=== PATIENT | female | born 1950 | race Caucasian/White ===

== ENCOUNTER 2016-09-16 09:39 | Day surgery (SDC) | payer MEDICARE ==
--- NOTE | 2016-09-16 12:00 | Operative Note ---
DATE OF SURGERY: 09/16/16 OPERATION: Esophagogastroduodenoscopy with multiple biopsies. REFERRING PHYSICIAN: Tip Benavides M.D. INDICATION: Recurring pyrosis. Patient also with a history of dysphagia, pointing to the upper chest. Upper endoscopy is performed at this time for further evaluation. ANESTHESIA: Intravenous sedation was administered by the Department of Anesthesiology and included Diprivan titrated to effect. PROCEDURE: Following informed consent from this alert individual, including a discussion of the risks and benefits of the procedure and an opportunity for the patient to ask questions, the patient was in the left lateral decubitus position. The Olympus [id number] video endoscope was inserted into the esophagus without resistance. The cervical esophagus had a normal appearance with normal folds and distensibility. There was a 4.0 mm polyp noted at approximately 23 cm from the area of the central incisors. This polyp was removed with biopsy forceps. The esophagus itself otherwise was endoscopically unremarkable. The gastroesophageal junction was evaluated and was found to have some edema and erythema just below the squamocolumnar junction in the upper stomach. Biopsies from this site were taken as well at the level of the gastroesophageal junction. The stomach was evaluated and found to be mildly erythematous without ulcerations or erosions. The pylorus was patent. The duodenal bulb, sweep, and descending duodenum were examined in a serial fashion and were found to be normal. The endoscope was then drawn back into the body of the stomach. Retroflexion was accomplished following air insufflation and failed to demonstrate any additional changes. Again, a 2.0 to 3.0 cm hiatal hernia was noted. Biopsies were taken from the stomach to evaluate for Helicobacter pylori and check histology. A final set of biopsies were taken from throughout the esophagus to rule out eosinophilic esophagitis. Although endoscopically, this was not readily apparent. The instrument was removed. The patient tolerated the procedure well and was returned to the recovery area in stable condition. IMPRESSION: 1. A 4.0 MM POLYP REMOVED FROM 23 CM FROM THE INCISORS. 2. BIOPSIES WERE TAKEN FROM THROUGHOUT THE ESOPHAGUS TO EVALUATE FOR POSSIBLE EOSINOPHILIC ESOPHAGITIS; ALTHOUGH ENDOSCOPICALLY THIS DID NOT SEEM APPARENT. 3. BIOPSIES WERE TAKEN FROM THE GASTROESOPHAGEAL JUNCTION, PARTICULARLY ON THE GASTRIC SIDE WHICH APPEARED SOMEWHAT EDEMATOUS AND ERYTHEMATOUS. 4. GASTRIC BIOPSIES WERE TAKEN FOR EVALUATION OF GASTRITIS WHICH WAS MILD. RECOMMENDATIONS: Further recommendations will be forthcoming pending the results of the biopsies obtained today. The patient might also benefit from taking omeprazole 20 mg on a regular basis each morning. Follow up will be with Dr. Benavides and Elaine Vega P.A.-C. Tamara JACOBO cc: Daina Schneider P.A.-C. Job Number: [id number] MTDD
[2016-09-16] MEDS ORDERED: MIDAZOLAM HCL 2MG/2ML VIAL IV ONE (14:38)
[2016-09-16] MEDS ORDERED: LIDOCAINE 2% MDV (20MG/ML) 20ML VIAL IV ONE (14:38)
[2016-09-16] MEDS ORDERED: FENTANYL PF 100MCG/2ML VIAL IV ONE (14:38)
[2016-09-16] MEDS ORDERED: PROPOFOL 10 MG/ML VIAL IV ONE (14:38)
== END 2016-09-16 11:12 | disposition home or self-care (01) ==
LOC: HOP 09:39
PROVIDERS: ATTEND Internal Medicine Gastroenterology
DX: K21.9 Gastro-esophageal reflux disease without esophagitis (principal); D13.0 Benign neoplasm of esophagus; K21.0 Gastro-esophageal reflux disease with esophagitis; K44.9 Diaphragmatic hernia without obstruction or gangrene; K29.50 Unspecified chronic gastritis without bleeding; F31.9 Bipolar disorder, unspecified
CPT/HCPCS: 43239; 00740; J3010

== ENCOUNTER 2016-12-22 20:18 | Emergency (ER) | payer MEDICARE ==
--- NOTE | 2016-12-22 21:16 | Emergency Department Record ---
History of Present Illness - General Chief complaint: Extremity Problem Stated complaint: LEFT THUMB PAIN/CLAUDINE/DIZZY Time Seen by Provider: 12/22/16 21:10 Source: Patient - History of Present Illness Initial comments: Patient has had 2 weeks of thumb pain since she slammed it in a car door. She says, "It's not broken, trust me, I need a CBC." Patient has bipolar. MD Complaint: Extremity pain - Related Data Allergies Allergy/AdvReac Type Severity Reaction Status Date / Time Penicillins Allergy Intermediate HIVES Verified 08/26/16 14:27 Review of Systems Reviewed: No additional complaints except as noted below Constitutional: Reports: As per HPI. Denies: Chills, Fever, Malaise, Night sweats, Weakness, Weight change Eyes: Reports: As per HPI. Denies: Eye discharge, Eye pain, Photophobia, Vision change ENT: Reports: As per HPI. Denies: Congestion, Dental pain, Ear pain, Epistaxis , Hearing loss, Throat pain Respiratory: Reports: As per HPI. Denies: Cough, Dyspnea, Hemoptysis, Stridor, Wheezes Cardiovascular: Reports: As per HPI. Denies: Arrhythmia, Chest pain, Dyspnea on exertion, Edema, Murmurs, Orthopnea, Palpitations, Paroxysmal nocturnal dyspnea, Rheumatic Fever, Syncope Endocrine: Reports: As per HPI. Denies: Fatigue, Heat or cold intolerance, Polydipsia, Polyuria Gastrointestinal: Reports: As per HPI. Denies: Abdominal pain, Constipation, Diarrhea, Hematemesis, Hematochezia, Melena, Nausea, Vomiting Genitourinary: Reports: As per HPI. Denies: Abnormal menses, Discharge, Dyspareunia, Dysuria, Frequency, Hematuria, Incontinence, Retention, Urgency Musculoskeletal: Reports: As per HPI. Denies: Arthralgia, Back pain, Gout, Joint swelling, Myalgia, Neck pain Skin: Reports: As per HPI. Denies: Bruising, Change in color, Change in hair/ nails, Lesions, Pruritus, Rash Neurological: Reports: As per HPI. Denies: Abnormal gait, Confusion, Headache, Numbness, Paresthesias, Seizure, Tingling, Tremors, Vertigo, Weakness Psychiatric: Reports: As per HPI. Denies: Anxiety, Auditory hallucinations, Depression, Homicidal thoughts, Suicidal thoughts, Visual hallucinations Hematological/Lymphatic: Reports: As per HPI. Denies: Anemia, Blood Clots, Easy bleeding, Easy bruising, Swollen glands Past Medical History - SOCIAL HISTORY Smoking Status: Current every day smoker - RESPIRATORY Hx Respiratory Disorders: Yes Hx Bronchitis: Yes (years ago) Hx COPD: Yes - CARDIOVASCULAR Hx Cardio Disorders: Yes Hx Edema: Yes (left ankle sometimes) Hx Hypotension: Yes - NEURO Hx Neuro Disorders: Yes Hx Dizziness: Yes (has lower bp-when gets up too quickly) - GI Hx GI Disorders: Yes Hx Abdominal Pain: Yes (only with IBS) Hx Diverticulitis: Yes Hx Reflux: Yes Hx Hiatal Hernia: Yes Hx Irritable Bowel: Yes Hx Nausea/Vomiting: Yes (only with IBS-none recently) Hx Wt Loss/Wt Gain: Yes (10 lbs/1 month) Comment:: cut sugars from diet -wt loss - Hx Genitourinary Disorders: No - ENDOCRINE Hx Endocrine Disorders: No - MUSCULOSKELETAL Hx Musculoskeletal Disorders: Yes Hx Arthritis: Yes Hx Back Injury: Yes Hx Osteoporosis: Yes - PSYCH Hx Psych Problems: Yes Hx Anxiety: Yes Comment:: /manic depressant - HEMATOLOGY/ONCOLOGY Hx Hematology/Oncology Disorders: Yes Hx Blood Disorders: Yes ("always have high white count",2009 last time) Hx Cancer: Yes (right breast) Hx Chemotherapy: Yes Hx Radiation Therapy: Yes Family Medical History Hx Alcohol Use: Brother/Sister *Alcohol Comment: 2 sisters Hx Anxiety: Father Hx Cancer: Grandparents *Cancer Comment: great grandma-stomach CA Hx Dementia: Mother Hx Depression: Children *Depression Comment: 2 sons Hx Diabetes: Brother/Sister *Diabetes Comment: sister Hx Heart Disease: Father *Kidney Comment: uncle Hx Liver Disease: Brother/Sister *Liver Comment: sister-hep C Hx Resp Disorders: Children *Resp Comment: asthma Hx Stroke: Brother/Sister *Stroke Comment: sister has ministrokes Physical Exam - General General Appearance: Alert, Oriented x3, Cooperative, No acute distress, Anxious (patient insists she does not need an xray on her thumb, but states she slammed it in a car door 2 weeks ago.) - Head Head exam: Normal inspection - Eye Eye exam: Normal appearance, PERRL Pupils: Normal accommodation - ENT ENT exam: Normal exam, Mucous membranes moist, Normal external ear exam, Normal orophraynx Ear exam: Normal external inspection. negative: External canal tenderness Nasal Exam: Normal inspection. negative: Discharge, Sinus tenderness Mouth exam: Normal external inspection, Tongue normal Teeth exam: Normal inspection. negative: Dental caries Throat exam: Normal inspection. negative: Tonsillar erythema, Tonsillar exudate - Neck Neck exam: Normal inspection, Full ROM. negative: Tenderness - Respiratory Respiratory exam: negative: Respiratory distress - Cardiovascular Cardiovascular Exam: Regular rate, Normal rhythm - GI/Abdominal GI/Abdominal exam: Soft. negative: Tenderness - Rectal Rectal exam: Deferred - exam: Deferred - Extremities Extremities exam: Normal inspection, Full ROM, Normal capillary refill, Tenderness (thumb with chronic skin changes, no cellulitis, nail is loose at its base, no discharge, erythema or bleeding) - Back Back exam: Reports: Normal inspection, Full ROM. Denies: Muscle spasm, Rash noted, Tenderness - Neurological Neurological exam: Alert, Normal gait, Oriented X3, Reflexes normal - Psychiatric Psychiatric exam: Normal affect, Normal mood - Skin Skin exam: Dry, Intact, Normal color, Warm Course - Reevaluation(s) Reevaluation #1: Patient is adamant to not get her thumb xrayed and is refusing. She also added that she has urinary symptoms and wishes a UA. 12/22/16 21:16 Reevaluation #2: Repeat exam shows left thumb slightly swollen compared to other thumb. Will bandage. Patient is fixatec on her thumb, "I see a blood spot here, but there is no blood." Thumb is dry, slightly sore on palpation. 12/22/16 21:56 Medical Decision Making - Management Options MDM Management: No Additional Work-up Planned - Data Complexity MDM Data: Labs Ordered and/or Reviewed (UA Neg.) Disposition Disposition: Discharge Clinical Impression: Contusion of thumb, left Qualifiers: Encounter type: initial encounter Damage to nail status: without damage Qualified Code(s): S60.012A - Contusion of left thumb without damage to nail, initial encounter Disposition: Home, Self-Care Condition: (1) Good Instructions: Contusion in Adults, Tunnel Elastic Operator Lockstitch (GEN), Finger Sprain (ED) Additional Instructions: Keep covered for protection. Follow up with PCP as needed.
[2016-12-22 21:30] LABS: URINE APPEARANCE CLEAR; URINE BILIRUBIN NEGATIVE (NEGATIVE); URINE BLOOD NEGATIVE (NEGATIVE); URINE COLOR YELLOW; URINE GLUCOSE (UA) NEGATIVE (NEGATIVE); URINE KETONE NEGATIVE (NEGATIVE); URINE LEUKOCYTE ESTERASE NEGATIVE (NEGATIVE); URINE NITRITE NEGATIVE (NEGATIVE); URINE PROTEIN NEGATIVE (NEGATIVE); URINE UROBILINOGEN 0.2 E.U./dL (0.20 - 1.00)
== END 2016-12-22 22:08 | disposition home or self-care (01) ==
LOC: ER 20:18
DX: S60.012A Contusion of left thumb without damage to nail, initial encounter (principal); R42 Dizziness and giddiness; R11.0 Nausea; R35.0 Frequency of micturition; W22.8XXA Striking against or struck by other objects, initial encounter; F31.9 Bipolar disorder, unspecified
CPT/HCPCS: 81003; 99283

== ENCOUNTER 2017-11-26 15:18 | Emergency (ER) | payer MEDICARE ==
--- NOTE | 2017-11-26 16:14 | Emergency Department Record ---
History of Present Illness - General Chief Complaint: Cough Stated Complaint: CHEST CONGESTION Time Seen by Provider: 11/26/17 15:56 Source: Patient, RN notes reviewed Mode of Arrival: Wheelchair - History of Present Illness Initial Comments: cough and congestion and for 2 weeks and she is trying to stop smoking. productive sputum and brown and it was green.[facility] and given z jah and finished that two days ago and she felt some better but getting worse now. MD Complaint: Cough Onset/Timin -: Week(s) Consistency: Intermittent - Related Data Home Medications Medication Instructions Recorded Confirmed Last Taken Clonazepam 1 mg PO ASDIR 11/26/17 11/26/17 Unknown Retreat Carbonate [Retreat 300 mg PO ASDIR 11/26/17 11/26/17 11/26/17 Carbonate ER] Nortriptyline HCl 100 mg PO ASDIR 11/26/17 11/26/17 11/26/17 Omeprazole [Prilosec] 20 mg PO DAILY 11/26/17 11/26/17 11/26/17 Previous Rx's Medication Instructions Recorded Cephalexin [Keflex] 500 mg PO QID #40 cap 11/26/17 Prednisone [Prednisone 10Mg] 10 mg PO ASDIR #30 tab 11/26/17 Allergies Allergy/AdvReac Type Severity Reaction Status Date / Time Penicillins Allergy Intermediate HIVES Verified 11/26/17 15:34 Travel Screening - Travel/Exposure Within Last 30 Days Have you traveled within the last 30 days?: No - Travel/Exposure Within Last Year Have you traveled outside the [place] in the last year?: No - Additonal Travel Details Have you been exposed to anyone with a communicable illness?: No - Travel Symptoms Symptom Screening: None Review of Systems Reviewed: No additional complaints except as noted below Constitutional: Reports: As per HPI. Denies: Chills, Fever, Malaise, Night sweats, Weakness, Weight change Eyes: Reports: As per HPI. Denies: Eye discharge, Eye pain, Photophobia, Vision change ENT: Reports: As per HPI. Denies: Congestion, Dental pain, Ear pain, Epistaxis , Hearing loss, Throat pain Respiratory: Reports: As per HPI. Denies: Cough, Dyspnea, Hemoptysis, Stridor, Wheezes Cardiovascular: Reports: As per HPI. Denies: Arrhythmia, Chest pain, Dyspnea on exertion, Edema, Murmurs, Orthopnea, Palpitations, Paroxysmal nocturnal dyspnea, Rheumatic Fever, Syncope Endocrine: Reports: As per HPI. Denies: Fatigue, Heat or cold intolerance, Polydipsia, Polyuria Gastrointestinal: Reports: As per HPI. Denies: Abdominal pain, Constipation, Diarrhea, Hematemesis, Hematochezia, Melena, Nausea, Vomiting Genitourinary: Reports: As per HPI. Denies: Abnormal menses, Discharge, Dyspareunia, Dysuria, Frequency, Hematuria, Incontinence, Retention, Urgency Musculoskeletal: Reports: As per HPI. Denies: Arthralgia, Back pain, Gout, Joint swelling, Myalgia, Neck pain Skin: Reports: As per HPI. Denies: Bruising, Change in color, Change in hair/ nails, Lesions, Pruritus, Rash Neurological: Reports: As per HPI. Denies: Abnormal gait, Confusion, Headache, Numbness, Paresthesias, Seizure, Tingling, Tremors, Vertigo, Weakness Psychiatric: Reports: As per HPI. Denies: Anxiety, Auditory hallucinations, Depression, Homicidal thoughts, Suicidal thoughts, Visual hallucinations Hematological/Lymphatic: Reports: As per HPI. Denies: Anemia, Blood Clots, Easy bleeding, Easy bruising, Swollen glands Past Medical History - SOCIAL HISTORY Smoking Status: Current every day smoker Alcohol Use: Rare Drug Use: None - RESPIRATORY Hx Respiratory Disorders: Yes Hx Bronchitis: Yes (years ago) Hx COPD: Yes - CARDIOVASCULAR Hx Cardio Disorders: Yes Hx Edema: Yes (left ankle sometimes) Hx Hypotension: Yes - NEURO Hx Neuro Disorders: Yes Hx Dizziness: Yes (has lower bp-when gets up too quickly) - GI Hx GI Disorders: Yes Hx Abdominal Pain: Yes (only with IBS) Hx Diverticulitis: Yes Hx Reflux: Yes Hx Hiatal Hernia: Yes Hx Irritable Bowel: Yes Hx Nausea/Vomiting: Yes (only with IBS-none recently) Hx Wt Loss/Wt Gain: Yes (10 lbs/1 month) Comment:: cut sugars from diet -wt loss - Hx Genitourinary Disorders: No - ENDOCRINE Hx Endocrine Disorders: No - MUSCULOSKELETAL Hx Musculoskeletal Disorders: Yes Hx Arthritis: Yes Hx Back Injury: Yes Hx Osteoporosis: Yes - PSYCH Hx Psych Problems: Yes Hx Anxiety: Yes Comment:: /manic depressant - HEMATOLOGY/ONCOLOGY Hx Hematology/Oncology Disorders: Yes Hx Blood Disorders: Yes ("always have high white count",2009 last time) Hx Cancer: Yes (right breast) Hx Chemotherapy: Yes Hx Radiation Therapy: Yes Family Medical History Any Significant Family History?: Yes Hx Alcohol Use: Brother/Sister *Alcohol Comment: 2 sisters Hx Anxiety: Father Hx Cancer: Grandparents *Cancer Comment: great grandma-stomach CA Hx Dementia: Mother Hx Depression: Children *Depression Comment: 2 sons Hx Diabetes: Brother/Sister *Diabetes Comment: sister Hx Heart Disease: Father *Kidney Comment: uncle Hx Liver Disease: Brother/Sister *Liver Comment: sister-hep C Hx Resp Disorders: Children *Resp Comment: asthma Hx Stroke: Brother/Sister *Stroke Comment: sister has ministrokes Physical Exam - General General Appearance: Alert, Oriented x3, Cooperative, No acute distress - Head Head exam: Normal inspection - Eye Eye exam: Normal appearance, PERRL Pupils: Normal accommodation - ENT ENT exam: Normal exam, Mucous membranes moist, Normal external ear exam, Normal orophraynx, TM's normal bilaterally Ear exam: Normal external inspection. negative: External canal tenderness Nasal Exam: Normal inspection. negative: Discharge, Sinus tenderness Mouth exam: Normal external inspection, Tongue normal Teeth exam: Normal inspection. negative: Dental caries Throat exam: Normal inspection. negative: Tonsillar erythema, Tonsillar exudate - Neck Neck exam: Normal inspection, Full ROM. negative: Tenderness - Respiratory Respiratory exam: Wheezes. negative: Respiratory distress - Cardiovascular Cardiovascular Exam: Regular rate, Normal rhythm, Normal heart sounds - GI/Abdominal GI/Abdominal exam: Soft, Normal bowel sounds. negative: Tenderness - Rectal Rectal exam: Deferred - exam: Deferred - Extremities Extremities exam: Normal inspection, Full ROM, Normal capillary refill. negative: Tenderness - Back Back exam: Reports: Normal inspection, Full ROM. Denies: Muscle spasm, Rash noted, Tenderness - Neurological Neurological exam: Alert, Normal gait, Oriented X3, Reflexes normal - Psychiatric Psychiatric exam: Normal affect, Normal mood - Skin Skin exam: Dry, Intact, Normal color, Warm Course Vital Signs 11/26/17 15:44 Temperature 98.3 F Pulse Rate 97 H Respiratory 20 Rate Blood Pressure 107/77 Pulse Ox 92 L Medical Decision Making - Data Complexity MDM Data: Labs Ordered and/or Reviewed, X-Ray Ordered and/or Reviewed (copd and tiny effussions and thickening) - Lab Data Result diagrams: 11/26/17 16:47 11/26/17 16:47 Disposition Clinical Impression: COPD (chronic obstructive pulmonary disease) with acute bronchitis Disposition: Home, Self-Care Condition: (1) Good Instructions: COPD (Chronic Obstructive Pulmonary Disease) (ED) Additional Instructions: follow up with family Dr in one week use nebulizer shai 4 hous albuterol Prescriptions: Cephalexin [Keflex] 500 mg PO QID #40 cap Prednisone [Prednisone 10Mg] 10 mg PO ASDIR #30 tab Forms: Patient Portal Access Time of Disposition: 17:59 Quality - Quality Measures Quality Measures: N/A - Blood Pressure Screening Does Patient Have Any of the Following: No Blood Pressure Classification: Normal BP Reading Systolic Measurement: 107 Diastolic Measurement: 77 Screening for High Blood Pressure: < Normal BP, F/U Not Required > [G8783]
[2017-11-26] MEDS: IPRATROPIUM/ALBUTEROL (0.5MG/3MG) NEB INH ONE (17:04)
[2017-11-26 17:14] LABS: HEMATOCRIT 53.4 % (35.0-47.0); HEMOGLOBIN 16.9 gm/dl (11.6-16.0); MEAN CELL VOLUME 88.9 fl (81-97); MEAN CORPUSCULAR HEMOGLOBIN 28.1 pg (27-33); MEAN CORPUSCULAR HGB CONC 31.6 g/dl (32-36); MEAN PLATELET VOLUME 11.1 fl (7.4-10.4); PLATELET COUNT 287 K/uL (130-400); RED BLOOD COUNT 6.01 M/uL (3.80-5.40); RED CELL DISTRIBUTION WIDTH 14.5 % (11.5-14.5); WHITE BLOOD COUNT W/O DIFF 9.2 K/uL (4.2-12.2)
[2017-11-26] MEDS: METHYLPREDNISOLONE PF 125MG/VIAL IVP ONE (17:24)
[2017-11-26] MEDS: CEFTRIAXONE SODIUM 1 GM in 0.9 % SODIUM CHLORIDE 100ML 100 ML IVPB ONE (17:24)
[2017-11-26] MEDS: 0.9 % SODIUM CHLORIDE 1000ML 1,000 ML IV PRN (17:24)
[2017-11-26 17:34] LABS: PLATELET ESTIMATE NORMAL (NORMAL)
[2017-11-26 17:37] LABS: BLOOD UREA NITROGEN 16 mg/dL (8-23); CREATININE 0.9 mg/dL (0.5-0.9); EST GLOMERULAR FILTRATION RATE > 60 mL/min
[2017-11-26 17:39] LABS: GLUCOSE,RANDOM 83 mg/dL (74-109)
--- NOTE | 2017-11-27 09:43 | RADIOLOGY REPORT ---
EXAM: CHEST, TWO VIEWS HISTORY: DIFFICULTY BREATHING. TECHNIQUE: Frontal and lateral views of the chest were obtained. Comparison: Prior chest from 06/27/13. FINDINGS: The heart size is normal. Osteopenia with ectasia of the thoracic aorta. COPD. Surgical clips project over the right hemithorax. Scarring in the right lung base. Minimal blunting of the costophrenic angles likely reflecting tiny effusions and/or pleural thickening. The lungs are otherwise clear. IMPRESSION: COPD. TINY EFFUSIONS AND/OR PLEURAL THICKENING. SCARRING IN THE LUNG BASES. JOB NUMBER: [id number] [facility]
== END 2017-11-26 18:18 | disposition home or self-care (01) ==
LOC: ER 15:18
DX: J44.9 Chronic obstructive pulmonary disease, unspecified (principal); J20.9 Acute bronchitis, unspecified; F17.210 Nicotine dependence, cigarettes, uncomplicated
CPT/HCPCS: 71046; 80048; 85027; 94640; 96365; 96375; 99284; J2930

== ENCOUNTER 2018-10-29 07:14 | Day surgery (SDC) | payer MEDICARE ==
[2018-10-29] MEDS ORDERED: PROPOFOL 10 MG/ML VIAL IV ONE (07:15)
--- NOTE | 2018-10-30 08:00 | Operative Note ---
DATE OF SURGERY: 10/29/2018 OPERATION: COLONOSCOPY with cold snare and biopsy and photo. PREOPERATIVE DIAGNOSIS: Hematochezia. POSTOPERATIVE DIAGNOSES: 1. Sigmoid diverticulosis. 2. Colon polyps. 3. Rectal mass. PROCEDURE: After informed consent was obtained from the patient, she was placed in the left lateral decubitus position in the endoscopy suite, sedated and monitored by the department of anesthesia. Digital rectal exam revealed a firm area. A well-lubricated [id number] colonoscope was subsequently inserted into the rectum which demonstrated an ulcerated friable mass. This was traversed without difficulty and the colonoscope was advanced to the level of the cecum. Preparation quality was good at best. The cecum and cecal bulb were unremarkable. The ascending colon revealed a sessile polyp approximately 6 mm in diameter removed with a cold snare. Minimal bleeding was noted. The polyp was retrieved. The transverse colon revealed 3 polyps ranging in size from 5-7 mm all removed with a cold snare. Minimal bleeding was noted at the sites. All the polyps were retrieved. The descending colon was unremarkable. The sigmoid colon did demonstrate [id number] diverticular changes. The rectal mass was again identified and biopsied multiple times. J-turn views of the anorectum were otherwise unremarkable. Forward views of the rectum again performed which revealed 2 smaller polyps adjacent to the mass which were not removed at this time given the likelihood of surgical intervention would become necessary. RECOMMENDATIONS: I would suggest the patient see a general surgeon and we will await the results of pathology but at this point, it is highly suspicious she has rectal adenocarcinoma. As always, thank you for allowing me to participate in the healthcare of your patients. CC: DO Oneida Ceballos NP MTDD
== END 2018-10-29 09:05 | disposition home or self-care (01) ==
LOC: HOP 07:14
PROVIDERS: ATTEND Internal Medicine Gastroenterology
DX: K92.1 Melena (principal); C20 Malignant neoplasm of rectum; D12.2 Benign neoplasm of ascending colon; D12.3 Benign neoplasm of transverse colon; K62.1 Rectal polyp; K57.30 Diverticulosis of large intestine without perforation or abscess without bleeding